=== PATIENT | male | born 1990 | race Two or more races ===

== ENCOUNTER 2016-10-31 21:54 | Emergency (ER) | payer OTHER, MEDICAID ==
[~2016-10-31] VITALS: Ht 167.6 cm; Wt 99.8 kg
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
--- NOTE | 2016-10-31 22:20 | NUR ---
PT'S WOUNDS BEING CLEANED BY [employer]ERITA NEVES.
--- NOTE | 2016-10-31 23:25 | NUR ---
[employer] IS AT THE BEDSIDE.
[2016-10-31] MEDS ORDERED: TDAP [DIPH/PERTUSSIS/TET] 0.5 ML VIAL IM ONE ×2 (23:30→23:33)
[2016-10-31] MEDS ORDERED: IBUPROFEN 600 MG TABLET PO ONE ×2 (23:30→23:33)
--- NOTE | 2016-10-31 23:41 | NUR ---
PT LEFT FOR CT VIA GURNEY.
--- NOTE | 2016-11-01 00:02 | NUR ---
PT RETURNED FROM CT.
--- NOTE | 2016-11-01 00:44 | NUR ---
PT IS TALKING TO FAMILY AT THE BEDSIDE. NO S/S OF DISTRESS.
--- NOTE | 2016-11-01 00:47 | NUR ---
PT'S FAMILY IS AT THE BEDSIDE.
[2016-11-01] MEDS ORDERED: LIDOCAINE HCL/PF 1% 30 ML VIAL TP ONE (01:00)
--- NOTE | 2016-11-01 02:10 | NUR ---
ALL WOUNDS CLEANED AND WRAPPED. STICHES COVERED WITH NON ADHERENT DRSG AND KERLEX. Patient discharged to home in stable condition. Written and verbal after care instructions given. Patient verbalizes understanding of instruction. PT AMBULATED OUT WITH A STEADY GAIT. VSS.
[2016-11-01 02:15] VITALS: BP 108/68
== END 2016-11-01 02:10 | disposition home or self-care (01) ==
LOC: ER 21:55
DX: S81.012A Laceration without foreign body, left knee, initial encounter (principal); S39.012A Strain of muscle, fascia and tendon of lower back, initial encounter; V23.9XXA Unspecified motorcycle rider injured in collision with car, pick-up truck or van in traffic accident, initial encounter; Y93.89 Activity, other specified; Y92.89 Other specified places as the place of occurrence of the external cause; Y99.9 Unspecified external cause status
CPT/HCPCS: 72110-TC; 73521; 90715; A4606; A6403; J3490; Z7610

== ENCOUNTER 2016-11-08 09:58 | Emergency (ER) | payer OTHER, MEDICAID ==
[~2016-11-08] VITALS: Ht 170.2 cm; Wt 104.3 kg
[2016-11-08 10:09] VITALS: BP 120/67
== END 2016-11-08 11:33 | disposition home or self-care (01) ==
LOC: ER 10:01
DX: S30.22XA Contusion of scrotum and testes, initial encounter (principal); S81.012D Laceration without foreign body, left knee, subsequent encounter; V29.3XXA Motorcycle rider (driver) (passenger) injured in unspecified nontraffic accident, initial encounter; Y93.89 Activity, other specified; Y92.488 Other paved roadways as the place of occurrence of the external cause; Y99.8 Other external cause status
CPT/HCPCS: 76870; 99284; A4606; A6403; Z7610